=== PATIENT | male | born 1980 | race Caucasian/White ===

== ENCOUNTER 2017-04-20 02:36 | Emergency (ER) | payer SELFPAY ==
[2017-04-20 03:35] VITALS: BP 147/83
== END 2017-04-20 03:35 | disposition home or self-care (01) ==
LOC: ED 02:36
DX: B86 Scabies (principal)

== ENCOUNTER 2017-04-24 02:10 | Emergency (ER) | payer SELFPAY ==
[2017-04-24 02:56] LABS: BASOPHIL % 0.6 % (0-2); PLATELET COUNT 244 x10^3mcL (130-400); RED CELL DISTRIBUTION WIDTH 13.8 % (11.5-14.5)
[2017-04-24 03:08] LABS: AMPHETAMINE QUAL UR POSITIVE (NEG <=1000)
[2017-04-24 03:13] LABS: CALCIUM 8.4 mg/dL (8.5-10.1); CARBON DIOXIDE 26.6 mmol/L (21-32); CHLORIDE SERUM 106 mmol/L (98-107); CREATININE SERUM 1.1 mg/dL (0.7-1.3); GFR1 > 60 mL/min; GLUCOSE SERUM 107 mg/dL (74-106); POTASSIUM SERUM 4.1 mmol/L (3.5-5.1); SODIUM SERUM 143 mmol/L (136-145)
[2017-04-24 03:40] VITALS: BP 138/113
== END 2017-04-24 03:40 | disposition home or self-care (01) ==
LOC: ED 02:10
PROVIDERS: Emergency Medicine
DX: R21 Rash and other nonspecific skin eruption (principal); R42 Dizziness and giddiness; F15.10 Other stimulant abuse, uncomplicated
CPT/HCPCS: 36415; Q0163